=== PATIENT | male | born 1990 | race Caucasian/White ===

== ENCOUNTER 2024-03-03 08:47 | Emergency (ER) | payer OTHER ==
[2024-03-03] MEDS ORDERED: BENZONATATE 100 MG CAP PO ONE (09:18)
[2024-03-03 09:56] LABS: Absolute Eosinophils 0.1 K/uL (0-0.5); Absolute Lymphocytes (CBC) 1.9 K/uL (0.7-4.9); Absolute Monocytes 0.5 K/uL (0.1-1.3); Absolute Neutrophil 2.6 K/uL (1.8-8.0); Basophils % 0.8 % (0-1.3); Eosinophils % 1.1 % (0-4.4); Hematocrit 45.1 % (39.6-49.0); Hemoglobin 15.4 g/dL (13.6-17.9); Lymphocytes % 36.5 % (15.3-44.8); MCH 31.5 pg (27.0-35.0); MCHC 34.1 g/dL (32.0-36.0); MCV 92.5 fL (80-100); MPV 7.5 fL (7.6-11.3); Monocytes % 10.6 % (3.3-12.3); Nucleated Red Blood Cells % 0.2 % (0-0); Platelets 256 thou/uL (152-406); RBC Red Blood Cell Count 4.88 M/uL (4.33-5.43); Red Cell Distribution Width 12.9 % (12.1-15.2)
[2024-03-03 10:04] LABS: SARS-CoV-2 Antigen CONTROL BLUE LINE VIS/BG OK; SARS-CoV-2 Antigen Rapid Res Negative (Negative)
--- NOTE | 2024-03-03 11:23 | RAD REPORT ---
EXAMINATION: TWO VIEW CHEST XR CLINICAL INDICATION: COUGH TECHNIQUE: 2 views of the chest was performed. COMPARISON: No prior exam. FINDINGS: Nonspecific peribronchial thickening without focal consolidation could represent a viral infection or reactive airway disease. Linear opacities in the left posterior lower lobe probably related to atelectasis. The heart is normal in size. No displaced fractures evident. IMPRESSION: Findings could represent a viral infection or reactive airway disease. Posterior left base findings likely atelectasis, very early infiltrate not excluded but deemed less l ikely.
--- NOTE | 2024-03-03 11:29 | ER ---
Nurse's Notes [facility] Name: Mario Reyes Age: 33 yrs Sex: Male : 1990 Arrival Date: 03/03/2024 Time: 08:47 Bed 2 Private MD: Diagnosis: Acute bronchitis, unspecified;Cough Presentation: 03/03 09:01 Chief complaint: Patient states: lingering cough, causing pain to lungs and throat, ld1 SOB. Denies fever, chills. Coronavirus screen: At this time, the client does not indicate any symptoms associated with coronavirus-19. Ebola Screen: No symptoms or risks identified at this time. Initial Sepsis Screen: Does the patient meet any 2 criteria? No. Patient's initial sepsis screen is negative. Does the patient have a suspected source of infection? No. Patient's initial sepsis screen is negative. Risk Assessment: Do you want to hurt yourself or someone else? Patient reports no desire to harm self or others. Onset of symptoms was March 03, 2024. 09:01 Method Of Arrival: Ambulatory ld1 09:01 Acuity: [place] 4 ld1 Triage Assessment: 09:05 General: Appears in no apparent distress. comfortable, Behavior is calm, cooperative, ld1 appropriate for age. Pain: Complains of pain in anterior aspect of left lateral abdomen and anterior aspect of right lateral abdomen Pain does not radiate. Pain currently is 4 out of 10 on a pain scale. Quality of pain is described as pressure. EENT: No signs and/or symptoms were reported regarding the EENT system. Neuro: Level of Consciousness is awake, alert, obeys commands, Oriented to person, place, time, situation, Appropriate for age. Cardiovascular: Capillary refill < 3 seconds Patient's skin is warm and dry. Respiratory: Reports shortness of breath on exertion cough that is non-productive, Airway is patent Respiratory effort is even, unlabored, Onset: The symptoms/episode began/occurred 1 month, the patient has mild shortness of breath. GI: Abdomen is flat, non-distended. : No signs and/or symptoms were reported regarding the genitourinary system. Derm: No signs and/or symptoms reported regarding the dermatologic system. Musculoskeletal: No signs and/or symptoms reported regarding the musculoskeletal system. Historical: - Allergies: 09:05 Ceclor; ld1 - Home Meds: 09:05 trazodone Oral [Active]; ld1 - PMHx: 09:05 Anxiety; ld1 - PSHx: 09:05 None; ld1 - Immunization history:: Adult Immunizations up to date. - Infectious Disease History:: Denies. - Social history:: Smoking status: Patient denies any tobacco usage or history of. Screenin:07 [facility] ED Fall Risk Assessment (Adult) History of falling in the last 3 months, ld1 including since admission No falls in past 3 months (0 pts) Confusion or Disorientation No (0 pts) Intoxicated or Sedated No (0 pts) Impaired Gait No (0 pts) Mobility Assist Device Used No (0 pt) Altered Elimination No (0 pt) Score/Fall Risk Level 0 - 2 = Low Risk Oriented to surroundings, Maintained a safe environment, Educated pt \T\ family on fall prevention, incl call for assistance when getting out of bed, Assessed \T\ reinforced patient's understanding of fall precautions, Provided non-skid footwear, Hourly rounding (assess needs \T\ fall precautionary measures) done, Used ambulatory aids as needed (educated on \T\ assisted with), Used gait belt as appropriate. Abuse screen: Denies threats or abuse. Denies injuries from another. Nutritional screening: No deficits noted. Tuberculosis screening: No symptoms or risk factors identified. Assessment: 09:07 Reassessment: See triage assessment. Cardiovascular: Capillary refill < 3 seconds ld1 Patient's skin is warm and dry. Rhythm is regular. Respiratory: Airway is patent Respiratory effort is even, unlabored, Breath sounds are clear bilaterally. 10:09 Reassessment: Patient appears in no apparent distress at this time. No changes from ld1 previously documented assessment. Patient and/or family updated on plan of care and expected duration. Pain level reassessed. Patient is alert, oriented x 3, equal unlabored respirations, skin warm/dry/pink. Vital Signs: 09:01 BP 123 / 84; Pulse 69; Resp 18; Temp 97.9(TE); Pulse Ox 97% on R/A; Weight 104.33 kg; ld1 Height 6 ft. 2 in. ; Pain 4/10; 10:09 Pulse 71; Resp 18; Pulse Ox 97% on R/A; ld1 09:01 Body Mass Index 29.53 (104.33 kg, 187.96 cm) ld1 09:01 Pain Scale: Adult ld1 ED Course: 08:51 Patient arrived in ED. mr 08:55 Peyman [facility] MD is Attending Physician. bo1 08:55 Arm band placed on Patient placed in an exam room, on a stretcher. ll1 09:01 Venecia Kamara, RN is Primary Nurse. ld1 09:05 Triage completed. ld1 09:07 Patient has correct armband on for positive identification. Placed in gown. Bed in low ld1 position. Call light in reach. Side rails up X2. Provided Education on: breathing exercises. fringe weaver on. Pulse ox on. NIBP on. Door closed. Noise minimized. Warm blanket given. 09:07 No provider procedures requiring assistance completed. ld1 09:32 RSV Sent. ld1 09:33 SARS-COV-2 Antigen Rapid Sent. ld1 09:33 Flu Sent. ld1 09:33 BMP Sent. ld1 09:33 CBC with Diff Sent. ld1 09:33 Inserted saline lock: 20 gauge in right antecubital area, using aseptic technique. ld1 Blood collected. Flushed with 10 mL NS. 09:42 Chest Pa And Lat (2 Views) XRAY In Process Unspecified. EDMS 11:42 IV discontinued, intact, bleeding controlled, No redness/swelling at site. ld1 Administered Medications: 09:19 Drug: Tessalon Perle PO 200 mg PO once Route: PO; ld1 Medication: 09:07 VIS not applicable for this client. ld1 Outcome: 11:29 Discharge ordered by . bo1 11:42 Discharged to home ambulatory, ld1 11:42 Condition: stable 11:42 Discharge instructions given to patient, Instructed on discharge instructions, follow up and referral plans. medication usage, Demonstrated understanding of instructions, follow-up care, medications, Prescriptions given X 3, 11:42 Patient left the ED. ld1 Signatures: Dispatcher [employer] EDHI Sabina See, Reg Reg mr StrattonLupe, RN RN ll1 Venecia Kamara, TRISHA RN ld1 Peyman [facility] MD MD boDennis Corrections: (The following items were deleted from the chart) 09:05 09:01 Chief complaint: Patient states: lingering cough, causing pain to lungs and ld1 throat. Denies fever, chills. ld1
--- NOTE | 2024-03-03 11:29 | EDPHYS ---
Physician Documentation [facility] Name: Mario Reyes Age: 33 yrs Sex: Male : 1990 Arrival Date: 03/03/2024 Time: 08:47 Bed 2 Private MD: ED Physician Peyman White HPI: 03/03 09:15 This 33 yrs old Male presents to ER via Ambulatory with complaints of Shortness Of bo1 Breath, Cough. 09:15 The patient has shortness of breath at rest, with light activity. Onset: The bo1 symptoms/episode began/occurred gradually, 2 week(s) ago. Duration: The symptoms Worse at night randy being recumbent. The patient's shortness of breath is aggravated by coughing, Feels like a burning in the chest. Pt denies smoking now. Denies of chemical exposures/travel or other noxious exposures. Historical: - Allergies: 09:05 Ceclor; ld1 - Home Meds: 09:05 trazodone Oral [Active]; ld1 - PMHx: 09:05 Anxiety; ld1 - PSHx: 09:05 None; ld1 - Immunization history:: Adult Immunizations up to date. - Infectious Disease History:: Denies. - Social history:: Smoking status: Patient denies any tobacco usage or history of. ROS: 09:30 Constitutional: Negative for fever, chills, and weight loss bo1 09:30 Constitutional: Negative for body aches, chills, fever, 09:30 Cardiovascular: Negative for chest pain, But post cough feeling a "burning in his chest, 09:30 Respiratory: Positive for cough, shortness of breath, on exertion. "I can't catch my breath", 09:30 Abdomen/GI: Negative for abdominal pain, nausea and vomiting, 09:30 MS/extremity: Negative for pain, swelling, 09:30 Skin: Negative for rash, 09:30 Allergy/Immunology: Negative for Environmental sensitivities, 09:30 All other systems are negative, Exam: 09:32 Constitutional: This is a well developed, well nourished patient who is awake, alert, bo1 and in no acute distress. 09:32 Constitutional: The patient appears in no acute distress, alert, awake, comfortable, non-toxic, 09:32 Eyes: Conjunctiva: normal, no acute changes, 09:32 ENT: Exam is negative for acute changes, 09:32 Neck: External neck: is normal, no acute changes, Lymph nodes: no appreciated lymphadenopathy, 09:32 Cardiovascular: Rate: normal, Rhythm: regular, Pulses: no pulse deficits are appreciated, 09:32 ECG was reviewed by the Attending Physician. 09:32 Respiratory: the patient does not display signs of respiratory distress, Respirations: normal, no acute changes, Breath sounds: are clear throughout, wheezing: is not appreciated, 09:32 Abdomen/GI: Palpation: abdomen is soft and non-tender, 09:32 Musculoskeletal/extremity: DVT Exam: no pain, no swelling, no tenderness, 09:32 Skin: no rash present. Warm and dry. Vital Signs: 09:01 BP 123 / 84; Pulse 69; Resp 18; Temp 97.9(TE); Pulse Ox 97% on R/A; Weight 104.33 kg; ld1 Height 6 ft. 2 in. ; Pain 4/10; 10:09 Pulse 71; Resp 18; Pulse Ox 97% on R/A; ld1 09:01 Body Mass Index 29.53 (104.33 kg, 187.96 cm) ld1 09:01 Pain Scale: Adult ld1 MDM: 08:56 Medical Screening Exam initiated bo1 11:30 Differential diagnosis: asthma, Bronchitis reactive airway disease. Data reviewed: bo1 vital signs, lab test result(s), EKG, radiologic studies, plain films. ED course: Pt to be managed as an OP on trial of PO abx, steroids and cough suppressant. 03/03 09:14 Order name: CBC with Diff; Complete Time: 10:07 bo03/03 09:14 Order name: BMP; Complete Time: 09:53 03/03 09:14 Order name: Flu; Complete Time: 10:07 03/03 09:14 Order name: SARS-COV-2 Antigen Rapid; Complete Time: 10:07 bo03/03 09:14 Order name: RSV; Complete Time: 10:07 03/03 09:14 Order name: Chest Pa And Lat (2 Views) XRAY; Complete Time: 11:24 03/03 09:14 Order name: EKG; Complete Time: 09:15 bo03/03 09:14 Order name: EKG - Nurse/Tech; Complete Time: :32 bo1 EC:32 Rate is 62 beats/min. Rhythm is regular. QRS [place] is Normal. [place] interval is normal. QRS bo1 interval is normal. QT interval is normal. No Q waves. T waves are Normal. No ST changes noted. Clinical impression: Normal ECG. Interpreted by me. Reviewed by me. Administered Medications: 09:19 Drug: Tessalon Perle PO 200 mg PO once Route: PO; ld1 Disposition Summary: 03/03/24 11:29 Discharge Ordered Notes: Location: Home bo1 Problem: new bo1 Symptoms: are unchanged bo1 Condition: Stable bo1 Diagnosis - Acute bronchitis, unspecified bo1 - Cough bo1 Followup: bo1 - With: Private Physician - When: Upon discharge from the Emergency Department - Reason: Recheck today's complaints, Continuance of care Discharge Instructions: - Discharge Summary Sheet bo1 - Acute Bronchitis, Adult bo1 - Cough, Adult bo1 Forms: - Medication Reconciliation Form bo1 - Antibiotic Education bo1 - Prescription Opioid Use bo1 - Patient Portal Instructions bo1 - Leadership Thank You Letter bo1 Prescriptions: - azithromycin 500 mg Oral tablet - take 1 tablet ORAL route daily for 10 days; 10 tablet; Refills: 0, Product bo1 Selection Permitted - Tessalon Perles 100 mg Oral capsule - take 1 capsule ORAL route every 8 hours As needed Sub for 200mg perles; 30 bo1 capsule; Refills: 0, Product Selection Permitted - Prednisone 20 mg Oral Tablet - take 2 tablets ORAL route once daily for 5 days; 10 tablet; Refills: 0, Product bo1 Selection Permitted Signatures: Dispatcher [employer] Venecia Dillard RN RN ld1 OeiPeyman MD MD bo1
[2024-03-03 11:57] VITALS: O2SAT 97
[2024-03-03 11:59] VITALS: BP 123/84; TEMP 97.9
--- NOTE | 2024-03-05 12:46 | EKG ---
Test Date: 2024-03-03 Test Time: 09:24:59 Superintendent Generating Plant: Brenda VALDEZ MEASUREMENT RESULTS: Intervals: Rate: 62 TX: 166 QRSD: 92 QT: 386 QTc: 391 [place]: P: 28 TX: 166 QRS: 53 T: 31 INTERPRETIVE STATEMENTS: Normal sinus rhythm Normal ECG No previous ECG available for comparison Electronically Signed On 03-05-24 12:42:03 FOUNDRY ENGINEER by Nate Cross
== END 2024-03-03 11:42 | disposition home or self-care (01) ==
LOC: ER 08:47
DX: J20.9 Acute bronchitis, unspecified (principal); Z11.52 Encounter for screening for COVID-19
CPT/HCPCS: 36415; 71046; 80048; 85025; 87804; 87807; 87811; 93005; 99284